=== PATIENT | male | born 1995 | race American Indian/Alaskan Native ===

== ENCOUNTER 2016-10-28 22:36 | Emergency (ER) | payer OTHER ==
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
[2016-10-28 22:52] VITALS: BMI 20.5
[2016-10-28 22:58] VITALS: BP 135/70; PULSE 57; RESP 16; TEMP 99.1; O2SAT 96
--- NOTE | 2016-10-29 12:50 | RAD ---
PROCEDURE: Right Hand Radiographs. HISTORY: rt. hand pain and swelling COMPARISON: None. FINDINGS: BONES: Boxer fracture 5th with mild mild radial/palmar angulation of the distal fragment. There is also surrounding soft tissue swelling. JOINTS: Normal. No osteoarthritic changes. SOFT TISSUES: As above OTHER FINDINGS: None. IMPRESSION: Boxer fracture 5th metacarpal with overlying soft tissue swelling as above
== END 2016-10-29 00:58 | disposition home or self-care (01) ==
LOC: ED 22:36 → MERGE 22:36 → ED 10-29 00:58
DX: S62.91XA Unspecified fracture of right hand, initial encounter for closed fracture (principal); W22.01XA Walked into wall, initial encounter; Y93.89 Activity, other specified; Y92.89 Other specified places as the place of occurrence of the external cause